=== PATIENT | female | born 1945 | race Caucasian/White ===

== ENCOUNTER 2018-09-29 11:15 | Outpatient (CLI) | END 2018-09-29 11:16 | disposition home or self-care (01) | LOC: RHC-LAB 11:15 | PROVIDERS: ATTEND General Practice | DX: S81.801D Unspecified open wound, right lower leg, subsequent encounter (principal) | CPT/HCPCS: 87070; 87186 ==

== ENCOUNTER 2018-10-15 10:54 | Outpatient (CLI) | payer OTHER | END 2018-10-15 10:55 | disposition home or self-care (01) | LOC: WOUND 10:54 | PROVIDERS: ATTEND Nurse Practitioner Family | DX: S81.811A Laceration without foreign body, right lower leg, initial encounter (principal) | CPT/HCPCS: 11042; 99203 ==

== ENCOUNTER 2018-10-22 10:41 | Outpatient (CLI) | payer OTHER | END 2018-10-22 10:42 | disposition home or self-care (01) | LOC: WOUND 10:41 | PROVIDERS: ATTEND Nurse Practitioner Family | DX: S81.811A Laceration without foreign body, right lower leg, initial encounter (principal) | CPT/HCPCS: 11042 ==

== ENCOUNTER 2018-10-29 10:55 | Outpatient (CLI) | END 2018-10-29 10:56 | disposition home or self-care (01) | LOC: WOUND 10:55 | PROVIDERS: ATTEND Nurse Practitioner Family | DX: S81.811A Laceration without foreign body, right lower leg, initial encounter (principal) | CPT/HCPCS: 97597 ==

== ENCOUNTER 2018-11-05 10:55 | Outpatient (CLI) | END 2018-11-05 10:56 | disposition home or self-care (01) | LOC: WOUND 10:55 | PROVIDERS: ATTEND Nurse Practitioner Family | DX: S81.811A Laceration without foreign body, right lower leg, initial encounter (principal) | CPT/HCPCS: 97597; 99212 ==

== ENCOUNTER 2018-11-12 10:59 | Outpatient (CLI) | END 2018-11-12 11:00 | disposition home or self-care (01) | LOC: WOUND 10:59 | PROVIDERS: ATTEND Nurse Practitioner Family | DX: S81.811A Laceration without foreign body, right lower leg, initial encounter (principal) | CPT/HCPCS: 99213 ==